=== PATIENT | female | born 1950 | race Caucasian/White ===

== ENCOUNTER 2017-09-22 16:24 | Emergency (ER) | payer MEDICARE, MEDICAID, SELFPAY ==
[2017-09-22 16:25] VITALS: BP 144/68; PULSE 79; RESP 18; TEMP 36.7; O2SAT 99; BMI 25.8
[2017-09-22 18:37] LABS: D-Dimer Quantitative (DVT/PE) 0.42 FEU/ug/m (0.27-0.49)
[2017-09-22 18:45] LABS: Anion Gap 5 (5-15); BUN 24 mg/dL (7-18); BUN/Creat Ratio 27.1 RATIO (10-20); Calcium,Total 8.8 mg/dL (8.5-10.1); Chloride 108 mmol/L (98-107); Creatinine, Serum 0.89 mg/dL (0.55-1.02); EST Glomerular Filtration Rate 68 mL/min (>60); Est Glom Filt Rate - Afr Amer 82 mL/min (>60); Estimated Creatinine Clearance 58.99 ml/min; Glucose 87 mg/dL (74-106); Potassium 4.2 mmol/L (3.5-5.1); Sodium Level 141 mmol/L (136-145)
--- NOTE | 2017-09-22 19:04 | ED.VISSUMM ---
- ER Visit Summary Date of Service: 09/22/17 Chief Complaint: [Right leg swelling] History of Present Illness: The patient is a 67 F [presents the emergency department with complaint of swelling in her right leg that she has noticed for the last week. Patient states that she has been more active and walking more. Patient also states that she is supposed to be on a low-dose water pill which she has not been taking. Patient states that typically the swelling in the right leg will go down as she sleeps and when she wakes up in the morning however after about half an hour of being up the leg starts to swell again. Patient denies any chest pain or shortness of breath. Patient denies recent travel or surgery. Patient has no history of DVT. Patient does not take any type of hormone replacement. Physical Examination: [HEENT-PERRLA, EOMI. Cranial nerves II through XII grossly intact. TMs clear. Mucous membranes moist. No adenopathy. Cardiovascular-regular rate and rhythm without murmur or ectopy Lungs-clear to auscultation, chest wall stable without crepitus or subcu emphysema Abdomen-normoactive bowel sounds, soft, nontender, no rebound or rigidity, no peritoneal signs. Extremities-intact ?4, normal range of motion, normal pulses, atraumatic]. Right leg-patient does have +2 edema of the right lower extremity. Negative Homans sign. No ropes or cords palpated. She is neurovascularly intact with normal pulses and normal sensation. Test Results: [D-dimer performed was normal at 0.42. BMP was unremarkable and her BUN was 24 and creatinine 0.84.] Emergency Department Course and Treatment: [At this point I explained to the patient that my suspicion for DVT is extremely low given no risk factors and the fact that she has a normal d-dimer. Patient will be advised to follow-up with primary care physician within the week.] Treatment Plan: [Patient to use compression stockings and start her diuretic. Patient to follow-up with her primary care physician in 3-5 days.] Disposition: [Discharged home in stable condition.] Patient advised to return if increased swelling, redness, fever, chest pain, shortness of breath, or condition should worsen in any way. Impression: [Right leg swelling-suspect venous insufficiency] This note was generated with [employer] software. It may contain incorrect words, spelling, and punctuation that were not noted in review of the chart prior to signing ED Disposition - Plan for ED Patient: Chief Complaint: Cellulitis Referrals: Westley Crowley, HIGH SCHOOL ADMISSIONS REPRESENTATIVE-C [Primary Care Provider] -
--- NOTE | 2017-09-22 19:06 | ED.DEP ---
ED Disposition - Plan for ED Patient: Chief Complaint: Cellulitis Instructions: ED Leg Swelling Unilateral Referrals: Westley Crowley, REGULATORY AFFAIRS PORTFOLIO LEADER-C [Primary Care Provider] - 5-7 Days Additional Instructions: start your diuretic and use compression stockings
--- NOTE | 2017-09-22 19:07 | DCINST.ED_ITS ---
ED Disposition - Plan for ED Patient: Chief Complaint: Cellulitis Instructions: ED Leg Swelling Unilateral Referrals: Westley Crowley, IRRIGATOR OVERHEAD-C [Primary Care Provider] - 5-7 Days Additional Instructions: start your diuretic and use compression stockings
[2017-09-22 19:31] VITALS: BP 141/64; PULSE 75; RESP 16; O2SAT 98
== END 2017-09-22 19:32 | disposition home or self-care (01) ==
LOC: ED 17:59
PROVIDERS: Emergency Provider Emergency Medicine; Family Provider Nurse Practitioner Family; PCP Nurse Practitioner Family
DX: R60.0 Localized edema (principal); E78.00 Pure hypercholesterolemia, unspecified; Z79.82 Long term (current) use of aspirin; Z79.899 Other long term (current) drug therapy
CPT/HCPCS: 36415; 80048; 85379; 99282

== ENCOUNTER 2017-10-04 08:57 | Emergency (ER) | payer MEDICARE, MEDICAID, SELFPAY ==
[2017-10-04 08:58] VITALS: BP 153/69; PULSE 65; RESP 18; TEMP 36.8; O2SAT 99; BMI 24.2
--- NOTE | 2017-10-04 09:11 | CT_ITS ---
STUDY: CT BRAIN WITHOUT CONTRAST REASON FOR EXAM: Female, 67 years old. Dizziness, weakness and nausea. RADIATION DOSAGE (If Supplied By Facility): CTDIvol = ( 44.99 ) mGy, DLP = ( 812.98 ) mGycm TECHNIQUE: Transaxial CT imaging of the brain was performed without administration of intravenous contrast material. Individualized dose optimization techniques were used for this CT. COMPARISON: None. FINDINGS: Normal soft tissue structures. Normal calvarium. There is mild cerebral atrophy with widening of the extra-axial spaces and ventricular dilatation. Normal white matter tracts of the cerebral hemispheres. Normal basal ganglia and thalami. Normal brainstem. Normal cerebellum. There is no intracranial hemorrhage. There are no findings of an acute ischemic infarction. Atherosclerotic calcification of the cavernous portions of the internal carotid arteries bilaterally. Normal visualized paranasal sinuses. CT/Brain/Head without Contrast IMPRESSION: Chronic involutional changes of the brain. Electronically Signed: Bhupinder Brady MD at 10:31 EDT Tel [phone], Service support ,
--- NOTE | 2017-10-04 09:11 | EKG12_ITS ---
Test Reason : DIZZINESS Blood Pressure : / mmHG Vent. Rate : 067 BPM Atrial Rate : 067 BPM P-R Int : 142 ms QRS Dur : 086 ms QT Int : 408 ms P-R-T Axes : 072 060 042 degrees QTc Int : 431 ms Normal sinus rhythm with sinus arrhythmia Normal ECG Confirmed by DIMITRIOS LOOMIS, ROHINI ([id number]), international editorial producer CAROLA RAMIREZ ([id number]) on 10/09/2017 2:17:51 PM Referred By: GONZALES Confirmed By:ROHINI PLUNKETT MD
--- NOTE | 2017-10-04 09:14 | ED.VISSUMM ---
- ER Visit Summary Date of Service: 10/04/17 Chief Complaint: Dizziness History of Present Illness: The patient is a 67 F history of chronic venous insufficiency peripheral edema right leg worse than left. Does take hydrochlorothiazide as needed for that. States today she had room spinning dizziness. Denies any headache. Denies any nausea or vomiting. Did have diarrhea this morning several times. No melena. Denies any headache. No head trauma. She is not on blood thinners. Denies any trouble with her speech or any change in her vision. No trouble moving her arms and legs. It is worse going from a lying to standing position. And feels awkward walking. No prior history of vertigo. No prior history of stroke or mini stroke. No recent fever. She washed her grandchild yesterday and has been feeling well the last several days. Physical Examination: Well-appearing 67-year-old female. No acute distress. Vital signs are stable afebrile. Pulse ox 99% on room air no signs of hypoxia. HEENT exam unremarkable. Pupils round reactive light. His motions are intact. No facial droop. Normal speech. Right TM is obstructed with wax. Left only a small amount of wax. Left TM is visualized. Normal speech. Neck nontender. No lymphadenopathy. Lungs clear to auscultation bilaterally. Heart regular rate and rhythm no murmur. Rate about 65. Abdomen soft nontender. Normal bowel sounds no peritoneal signs. She is moving all 4 extremities. They are neurovascularly intact. Normal motor strength. Normal range of motion. Normal sensation. She does have peripheral edema in both lower extremities much more so on the right than the left. This is all chronic. Dorsi and plantar flexion are intact. She can lift either leg off the bed. Neurologically she is awake and alert. With no focal motor or sensory deficits. NIH is 0. Fingertip to nose and heel to solorzano are both within normal limits. Test Results: CBC normal. BMP normal. Normal gap and creatinine. Orthostatic vital signs are normal. No signs of orthostatic hypotension. EKG sinus rhythm rate is [address] of the brain is read by the radiologist and read by me shows no acute abnormality. The nurses irrigated the patient's ears are really got very little wax out. Emergency Department Course and Treatment: Clinically the patient has basically normal neurologic exam. There are no focal deficits. She also has a negative Hallpike maneuver. Moving her head rapidly from the left to the right and right to the left in sitting her up did not make her symptoms any worse. Currently her symptoms are benign. She will receive IV fluids times a liter. We will irrigate the right ear. Check screening labs and a CT of her brain. Treatment Plan: Repeat exam at 1039 patient is completely symptom-free. Exam remains normal. Clinically I think she had vertigo that resolved. She will be discharged home with Antivert as needed. Follow-up with primary care physician. supervisor stitching department either Debrox or Cerumenex for her wax impaction in the right ear. Disposition: Discharge Impression: Acute dizziness secondary to acute vertigo resolved. Diarrhea Right cerumen impaction This note was generated with [employer] dictation software. It may contain incorrect words, spelling, and punctuation that were not noted in review of the chart prior to signing ED Disposition - Plan for ED Patient: Chief Complaint: Dizziness Referrals: Westley Crowley, RN STAFF-C [Primary Care Provider] -
--- NOTE | 2017-10-04 09:21 | ED.DCSUM_ITS ---
- ER Visit Summary Date of Service: 10/04/17 Chief Complaint: Dizziness History of Present Illness: The patient is a 67 F history of chronic venous insufficiency peripheral edema right leg worse than left. Does take hydrochlorothiazide as needed for that. States today she had room spinning dizziness. Denies any headache. Denies any nausea or vomiting. Did have diarrhea this morning several times. No melena. Denies any headache. No head trauma. She is not on blood thinners. Denies any trouble with her speech or any change in her vision. No trouble moving her arms and legs. It is worse going from a lying to standing position. And feels awkward walking. No prior history of vertigo. No prior history of stroke or mini stroke. No recent fever. She washed her grandchild yesterday and has been feeling well the last several days. Physical Examination: Well-appearing 67-year-old female. No acute distress. Vital signs are stable afebrile. Pulse ox 99% on room air no signs of hypoxia. HEENT exam unremarkable. Pupils round reactive light. His motions are intact. No facial droop. Normal speech. Right TM is obstructed with wax. Left only a small amount of wax. Left TM is visualized. Normal speech. Neck nontender. No lymphadenopathy. Lungs clear to auscultation bilaterally. Heart regular rate and rhythm no murmur. Rate about 65. Abdomen soft nontender. Normal bowel sounds no peritoneal signs. She is moving all 4 extremities. They are neurovascularly intact. Normal motor strength. Normal range of motion. Normal sensation. She does have peripheral edema in both lower extremities much more so on the right than the left. This is all chronic. Dorsi and plantar flexion are intact. She can lift either leg off the bed. Neurologically she is awake and alert. With no focal motor or sensory deficits. NIH is 0. Fingertip to nose and heel to solorzano are both within normal limits. Test Results: CBC normal. BMP normal. Normal gap and creatinine. Orthostatic vital signs are normal. No signs of orthostatic hypotension. EKG sinus rhythm rate is [address] of the brain is read by the radiologist and read by me shows no acute abnormality. The nurses irrigated the patient's ears are really got very little wax out. Emergency Department Course and Treatment: Clinically the patient has basically normal neurologic exam. There are no focal deficits. She also has a negative Hallpike maneuver. Moving her head rapidly from the left to the right and right to the left in sitting her up did not make her symptoms any worse. Currently her symptoms are benign. She will receive IV fluids times a liter. We will irrigate the right ear. Check screening labs and a CT of her brain. Treatment Plan: Repeat exam at 1039 patient is completely symptom-free. Exam remains normal. Clinically I think she had vertigo that resolved. She will be discharged home with Antivert as needed. Follow-up with primary care physician. software support technician either Debrox or Cerumenex for her wax impaction in the right ear. Disposition: Discharge Impression: Acute dizziness secondary to acute vertigo resolved. Diarrhea Right cerumen impaction This note was generated with [email or web address] dictation software. It may contain incorrect words, spelling, and punctuation that were not noted in review of the chart prior to signing ED Disposition - Plan for ED Patient: Chief Complaint: Dizziness Referrals: Westley Crowley, UX MANAGER-C [Primary Care Provider] -
[2017-10-04] MEDS: 0.9% Normal Saline 1,000 ML 1000 ML IV (09:39)
[2017-10-04 09:45] LABS: Hematocrit 42.1 % (37-47); Hemoglobin 13.2 g/dl (12.0-15.0); Mean Corp Hgb Conc 31.4 g/gl (32-36); Mean Corpuscular Hgb 27.8 pg (27.0-32.0); Mean Corpuscular Volume 88.8 fL (81-99); Mean Platelet Vol. 10.6 fl (6.2-12.0); Platelet Count 173 K/mm3 (150-450); RBC Distribution Width CV 13.7 % (11.6-14.6); RBC Distribution Width SD 44.2 fl (35.1-43.9); Red Blood Count 4.74 M/mm3 (4.2-5.4); Scan Indicated on CBC? Y/N NO; White Blood Count 6.3 K/mm3 (4.4-11.0)
[2017-10-04 10:18] VITALS: BP 139/69; BP 141/69; BP 146/76; PULSE 72; PULSE 74; PULSE 77
[2017-10-04 10:25] LABS: Anion Gap 6 (5-15); BUN 17 mg/dL (7-18); BUN/Creat Ratio 23.7 RATIO (10-20); Calcium,Total 8.3 mg/dL (8.5-10.1); Chloride 111 mmol/L (98-107); Creatinine, Serum 0.72 mg/dL (0.55-1.02); EST Glomerular Filtration Rate 87 mL/min (>60); Est Glom Filt Rate - Afr Amer 105 mL/min (>60); Estimated Creatinine Clearance 72.92 ml/min; Glucose 94 mg/dL (74-106); Potassium 4.1 mmol/L (3.5-5.1); Sodium Level 143 mmol/L (136-145)
--- NOTE | 2017-10-04 10:50 | ED.DEP ---
ED Disposition - Plan for ED Patient: Disposition: Home or Assisted Living Chief Complaint: Dizziness Instructions: ED BPV Vertigo Prescriptions: Meclizine HCl [Antivert] 25 mg PO 4X/DAY PRN PRN #20 tab PRN Reason: Dizziness Referrals: Westley Crowley, LABELER-C [Primary Care Provider] - 1 Week if not improving Additional Instructions: Antivert as needed for dizziness. If not improving follow-up your primary care physician. If worse return to the ER.
--- NOTE | 2017-10-04 10:53 | DCINST.ED_ITS ---
ED Disposition - Plan for ED Patient: Disposition: Home or Assisted Living Chief Complaint: Dizziness Instructions: ED BPV Vertigo Prescriptions: Meclizine HCl [Antivert] 25 mg PO 4X/DAY PRN PRN #20 tab PRN Reason: Dizziness Referrals: Westley Crowley, WOOL SHEARING SUPERVISOR-C [Primary Care Provider] - 1 Week if not improving Additional Instructions: Antivert as needed for dizziness. If not improving follow-up your primary care physician. If worse return to the ER.
[2017-10-04 10:56] VITALS: BP 139/77; PULSE 71; RESP 16; O2SAT 99
== END 2017-10-04 10:56 | disposition home or self-care (01) ==
PROVIDERS: Emergency Provider Emergency Medicine; Family Provider Nurse Practitioner Family; PCP Nurse Practitioner Family
DX: R42 Dizziness and giddiness (principal); R19.7 Diarrhea, unspecified; H61.21 Impacted cerumen, right ear; I87.2 Venous insufficiency (chronic) (peripheral); E78.00 Pure hypercholesterolemia, unspecified; Z79.82 Long term (current) use of aspirin; Z79.899 Other long term (current) drug therapy
CPT/HCPCS: 70450; 80048; 85027; 93005; 96360; 99285; J7030

== ENCOUNTER → 2019-08-13 07:45 | Outpatient (CLI) | payer MEDICARE, SELFPAY ==
[2019-08-13 08:37] LABS: Hematocrit 41.9 % (37-47); Hemoglobin 13.1 g/dL (12.0-15.0); Mean Corp Hgb Conc 31.3 g/dL (32-36); Mean Corpuscular Hgb 28.1 pg (27.0-32.0); Mean Corpuscular Volume 89.9 fL (81-99); Mean Platelet Vol. 10.8 fl (6.2-12.0); Platelet Count 178 K/mm3 (150-450); RBC Distribution Width CV 13.2 % (11.6-14.6); RBC Distribution Width SD 43.3 fl (35.1-43.9); Red Blood Count 4.66 M/mm3 (4.2-5.4); White Blood Count 4.9 K/mm3 (4.4-11.0)
[2019-08-13 09:09] LABS: AST(SGOT) 21 U/L (15-37); Alanine Aminotransfer ALT/SGPT 22 U/L (13-56); Albumin, Serum 3.5 g/dL (3.2-5.0); Alkaline Phosphatase 70 U/L (45-117); Anion Gap 6 (5-15); BUN 19 mg/dL (7-18); Calcium,Total 9.1 mg/dL (8.5-10.1); Chloride 107 mmol/L (98-107); Cholesterol 171 mg/dL (200); Creatinine, Serum 0.76 mg/dL (0.55-1.02); EST Glomerular Filtration Rate 81 mL/min (>60); Est Glom Filt Rate - Afr Amer 97 mL/min (>60); Globulin 3.4 g/dL (2.2-4.2); Glucose 100 mg/dL (74-106); High Density Lipoprotein 71 mg/dL; Potassium 4.2 mmol/L (3.5-5.1); Protein, Total 6.9 g/dL (6.4-8.2); Sodium Level 141 mmol/L (136-145); Triglycerides 52 mg/dL; Very Low Density Lipoprotein 10 mg/dL (5-40)
== END ==
PROVIDERS: PCP Nurse Practitioner Family; Referring Provider Nurse Practitioner Family; Visit Provider Nurse Practitioner Family
DX: E78.5 Hyperlipidemia, unspecified (principal); I34.0 Nonrheumatic mitral (valve) insufficiency
CPT/HCPCS: 36415; 80053; 80061; 85027

== ENCOUNTER → 2020-12-30 10:35 | Outpatient (CLI) | payer MEDICARE, SELFPAY ==
--- NOTE | 2020-12-30 10:38 | ECHOD_ITS ---
Reason For Study: EDEMA Procedure This was a 2D Doppler, Color Flow transthoracic echocardiogram. Exam performed in department. Left Ventricle Normal LV size. Left ventricular systolic function is normal. The estimated ejection fraction is 60 %. No regional wall motion abnormalities noted. Right Ventricle Normal RV size. Normal systolic function. Atria Normal left atrium. Normal right atrium. Mitral Valve Normal mitral valve. Tricuspid Valve Normal tricuspid valve. Aortic Valve Normal aortic valve. Trisinus/trileaflet aortic valve. Pulmonic Valve Normal pulmonic valve. Great Vessels Normal aortic root. The pulmonary artery is normal size. Normal inferior vena cava. Pericardium/Pleural No pericardial effusion. MMode/2D Measurements & Calculations LVIDd: 4.6 cm IVSd: 0.79 cm Ao root diam: 3.0 cm LVIDs: 3.4 cm LVPWd: 0.88 cm RVDd: 3.0 cm FS: 27.0 % LAV(MOD-bp): 57.0 ml LA A4 area: 18.9 cm2 LA dimension(2D): 3.7 cm LAV(MOD-bp) Indexed: 30.2 ml/m2 LAV(MOD-sp2): 58.5 ml LAV(MOD-sp4): 54.3 ml RA A4 area: 13.7 cm2 Time Measurements MV dec time: 0.20 sec Doppler Measurements & Calculations MV E max duong: 79.1 cm/sec Lat Peak E' Duong: 12.0 cm/sec Med Peak E' Duong: 7.5 cm/sec MV A max duong: 69.0 cm/sec E/E' lat: 6.6 E/E' med: 10.5 MV E/A: 1.1 Ao V2 max: 137.1 cm/sec LV V1 max: 111.0 cm/sec PA V2 max: 71.6 cm/sec Ao max P.5 mmHg LV V1 max P.9 mmHg ECHO/Echo Complete Interpretation Summary Normal LV size. Left ventricular systolic function is normal. The estimated ejection fraction is 60 %. Structurally normal valves. Ordering Physician: Westley Crowley Referring Physician: Westley Crowley Performed By: Seema Morel, EDWIN, RVT
== END ==
LOC: CVS 10:37
PROVIDERS: PCP Nurse Practitioner Family; Referring Provider Nurse Practitioner Family; Visit Provider Nurse Practitioner Family
DX: R01.1 Cardiac murmur, unspecified (principal); I34.0 Nonrheumatic mitral (valve) insufficiency; I07.1 Rheumatic tricuspid insufficiency
CPT/HCPCS: 93306

== ENCOUNTER → 2021-01-25 09:38 | Outpatient (CLI) | payer MEDICARE, SELFPAY ==
--- NOTE | 2021-01-25 09:45 | VDLE_ITS ---
Reason For Study: Venous insufficiency RIGHT LEFT CFV is compressible, spontaneous, phasic, CFV is compressible, spontaneous, phasic, competent and demonstrates normal competent, and demonstrates normal augmentation. augmentation. FV is compressible, spontaneous, phasic, FV is compressible, spontaneous, phasic, competent and demonstrates normal competent and demonstrates normal augmentation. augmentation. POP V is compressible, spontaneous, phasic, POP V is compressible, spontaneous, phasic, competent and demonstrates normal competent and demonstrates normal augmentation. augmentation. T/P Trunk is compressible. T/P Trunk is compressible. PTV is compressible. PTV is compressible. RT PerV is compressible. LT PerV is compressible. SFJ is competent and measures 0.64 x 0.72 cm. SFJ is competent and measures 0.73 x 0.66 cm. GSV proximal thigh measures 0.44 x 0.42 cm. GSV proximal thigh measures 0.31 x 0.33 cm. GSV at knee measures 0.31 x 0.32 cm. GSV at knee measures 0.18 x 0.20 cm. GSV is competent throughout. GSV is competent throughout. ASV at knee is INCOMPETENT for greater than SSV at junction is competent and measures 0.5 seconds and measures 0.25 x 0.27 cm. 0.09 x 0.10 cm. INCOMPETENT cutting machine tender noted 24 cm above medical malleolus. SSV at junction is competent and measures 0.41 x 0.37 cm. Procedure This is a venous duplex using B-mode, color flow and spectral Doppler. Exam performed in department. Patient was scanned in supine position during reflux assessment. A preliminary report was called and/or faxed to [facility]. VL/Venous Duplex US - Say Extrem Interpretation Summary Deep veins of the lower extremities are bilaterally patent and compressible seg mentally. There is no evidence of deep vein thrombosis on either side. Valvular competence appears in tact within the proximal deep venous systems bilaterally. The great saphenous veins appear bila terally patent and compressible segmentally. Sapheno-femoral junctions are bilaterally competent . Valvular competence appears to be intact segmentally within the great saphenous veins bilaterally. Small saphenous veins are patent and competent bilaterally. The accessory saphenous vein at the right knee is incompetent. An incompetent cutting machine tender vein is noted in the right calf, located 24 centimete rs proximal to the right medial malleolus. Ordering Physician: Westley Crowley Referring Physician: Westley Crowley Performed By: Charlotte Carter RVT
== END ==
LOC: CVS 09:42
PROVIDERS: PCP Nurse Practitioner Family; Referring Provider Nurse Practitioner Family; Visit Provider Nurse Practitioner Family
DX: I87.2 Venous insufficiency (chronic) (peripheral) (principal); R60.0 Localized edema
CPT/HCPCS: 93970

== ENCOUNTER 2021-05-10 10:30 | Outpatient (RCR) | payer MEDICARE, SELFPAY ==
[2021-05-03 10:12] VITALS: BP 139/78; PULSE 80; RESP 20; TEMP 36.3; BMI 26.7
--- NOTE | 2021-05-03 11:05 | PCM.WC.HP ---
History of Present Illness Date of Service: 05/03/21 Chief Complaint: Swelling, edema, and lymphedema?right lower extremity History of Wound: This is a 70-year-old female who presents with swelling, edema, and lymphedema in her right lower extremity. She claims to have been in her normal state of good health until December 06, 2020. On that date, after a long day at the [facility], the patient developed sudden swelling and edema in her right lower extremity. She denies a history of swelling in her lower extremities prior to that date. The swelling in the right lower extremity has persisted since that time, unabated. According the patient, the swelling does not vary by time of day. The patient claims to be active, and sleeps on a flat mattress at night. She babysits her toddler grandchildren during the day. She experiences only occasional pain and discomfort in her right lower extremity. Her left lower extremity is unaffected. The patient denies a history of thrombophlebitis. A venous duplex examination was performed on January 25, 2021. Great saphenous veins and small saphenous veins were noted to be competent bilaterally. An accessory saphenous vein near the right knee was noted to be incompetent. A sports official vein in the right calf was also noted to be incompetent. There was no evidence of acute thrombophlebitis, or chronic venous changes. The patient's primary care physician has prescribed Lasix, which has not resulted in improvement. The patient's BMI is 26.8. [facility] Medical History (Updated 05/03/21 @ 11:[address] Justin Ryan MD) Chronic venous insufficiency Edema of right lower leg Hyperlipidemia Lymphedema of right lower extremity Osteoarthritis Swelling of right lower extremity Home Medications aspirin 81 mg PO DAILY@0800 09/22/17 [History Last Taken Unknown] atorvastatin 10 mg PO QHS 09/22/17 [History Last Taken Unknown] furosemide [Lasix] 20 mg PO DAILY 05/03/21 [History Last Taken Unknown] ramipril 1.25 mg PO DAILY 05/03/21 [History Last Taken Unknown] Allergy/AdvReac Type Severity Reaction Status Date / Time No Known Allergies Allergy Verified 05/03/21 10:26 Social History Smoking Status: Never smoker Vital Signs Vital Signs Vital Signs: 05/03/21 10:12 Temperature 97.3 F L Temperature Source Temporal Pulse Rate 80 Respiratory Rate 20 H Blood Pressure 139/78 H Blood Pressure Mean 98 Blood Pressure Source Monitor Weight Weight: 165 lb 12.203 oz Body Mass Index (BMI) 26.7 Physical Exam Const alert, oriented x3, no apparent distress and well nourished General Appearance: cooperative and well developed Orientation / Consciousness: awake, oriented to person, oriented to place and oriented to time HEENT normocephalic and head/scalp atraumatic Head and Scalp: normal to inspection, normocephalic and atraumatic External Ear: external ears normal Eyes PERRL and EOMs intact bilaterally General Eye: normal appearance of both eyes Resp normal respiratory effort, normal air movement, no retractions and no use of accessory muscles Effort and Inspection: able to speak in complete sentences Extremity no calf tenderness Extremity Narrative: Significant swelling, edema, and lymphedema are noted in the patient's right lower extremity. Circumference measurements have been obtained. There are no open wounds or ulcerations. There are no significant skin changes. There are no significant medium or large sized varicosities. The left lower extremity is normal, devoid of swelling and edema. General Extremity: Negative for clubbing or cyanosis Skin Wound Narrative: There are no open wounds or ulcerations in either lower extremity. Neuro oriented x3, CN's II-XII intact bilaterally and moves all extremities Sensorium / Orientation: awake, alert, oriented to person, oriented to place and oriented to time Psych Appearance: grossly normal and appropriate Attitude: calm Activity / Motor Behavior: appropriate eye contact Speech: normal speech Mood & Affect: euthymic mood Thought Process: normal thought process Thought Content: normal thought content Attention / Concentration: attention grossly intact Debridement Note Debridement Note No debridement was completed: No debridement was completed today (There are no open wounds or ulcerations.) Post-Debridement Measurements and Additional Note: Post-Debridement Measurements/Treatment ANIKET - Nurse 1 - General Ulcer Assessment Start: 05/03/21 10:12 Freq: Status: Active Protocol: FLOYD Activity Type Activity Date Activity User E-Sign Co-Sign Detail Recorded Client Recorded Date Recorded By Document 05/03/21 10:12 DL [id number] 05/03/21 10:21 DL 05/03/21 10:12 - Today's Visit Information Type of service Initial Visit Arrival Mode Ambulatory Transfer Assistance None Patient Identification Verified (Name & Yes ) Patient Requires Transmission-Based No Precautions Height and Weight Height 5 ft 6 in Weight 165 lb 12.203 oz Weight in Pounds 165.8 lbs Body Mass Index (BMI) 26.7 BMI Classification Overweight BSA - Antonio 1.85 Vital Signs Temperature (97.8 F-99.1 F) 97.3 F L Temperature Source Temporal Pulse Rate (60-100) 80 Pulse Location Monitor Respiratory Rate (12-18) 20 H Respiratory rate source Observation Blood Pressure (90/60-120/80) 139/78 H Blood Pressure Mean 98 Source Monitor History Since Last Visit- (Skip if this is Patient's initial visit) Left Footwear Regular Shoe Right Footwear Regular Shoe Pain Scale: 0-10 Numeric Is Patient Pain Free? Yes Lower Extremity Assessment/ Foot Assessment/ Toe Nail Assessment Left -Posterior Tibial Palpable Yes -Dorsalis Pedis Palpable Yes -Extremity Color Hemosiderin -Hair Growth on Legs No -Hair Growth on Toes No -Temperature of Extremity Warm -Dependent Rubor No -Blanched when Elevated No -Lipodermatosclerosis No -Other Deformity No -Prior Foot Ulcer No -Charcot Joint No -Prior Amputation No -Thick No -Discolored No -Deformed No -Improper Length & Hygeine No Right -Posterior Tibial Palpable Yes -Dorsalis Pedis Palpable Yes -Extremity Color Normal -Hair Growth on Legs Yes -Temperature of Extremity Warm -Capillary Refill Less than 3 Seconds -Dependent Rubor No -Blanched when Elevated No -Lipodermatosclerosis No -Other Deformity No -Prior Foot Ulcer No -Charcot Joint No -Prior Amputation No -Thick No -Discolored No -Deformed No -Improper Length & Hygeine No Neuropathy Assessment Feet - Top Side and Bottom <Entered> (a) Communication Assessment Preferred language Singaporean Able to Read Yes Able to Write Yes Communication Tools None Right Hearing Abillity Normal Left Hearing Abillity Normal Visual Assistive Devices None Teaching Assessment Preferences Verbal,Written, Demonstration Readiness To Learn Good Willingness to Engage in Self Management Med Activies Readiness to Engage in Self Management High Activities Anxiety Level Calm Cooperation Cooperative Perception Coherent Interest in Health Problem Asks Questions Education Importance Acknowledges Need Does Patient Smoke tobacco or other No substances Smoking Status Never smoker Is Patient Diabetic No Functional Assessment Recent Decline in Ability to Perform Denies Any Declines Culture/Bahai/Staffing Associate Cultural/Bahai Needs that may affect No Treatment Plan Would you allow our hospital internet site designer to No meet you for the purpose of spiritual/ emotional support? Staffing Associate to contact place of adventist No (a) 1 - + WC - Nurse 1 - General Ulcer Measurement Start: 05/03/21 10:12 Freq: Status: Active Protocol: Activity Type Activity Date Activity User E-Sign Co-Sign Detail Recorded Client Recorded Date Recorded By Document 05/03/21 10:12 DL [id number] 05/03/21 10:21 DL 05/03/21 10:12 Wound Center Nurse 1 Right Calf (cm) 46 Right Ankle (cm) 34.2 Left Calf (cm) 39 Left Ankle (cm) 27 Assessment/Plan Assessment/Plan (1) Swelling of right lower extremity: CODE(S): M79.89 - Other specified soft tissue disorders (2) Edema of right lower leg: CODE(S): R60.0 - Localized edema (3) Lymphedema of right lower extremity: CODE(S): I89.0 - Lymphedema, not elsewhere classified (4) Osteoarthritis: CODE(S): M19.90 - Unspecified osteoarthritis, unspecified site (5) Hyperlipidemia: CODE(S): E78.5 - Hyperlipidemia, unspecified (6) Chronic venous insufficiency: CODE(S): I87.2 - Venous insufficiency (chronic) (peripheral) PLAN: This is a 70-year-old female with swelling, edema, and lymphedema in her right lower extremity, since November 2020. We are to implement a regimen of conservative treatment measures, which have been discussed thoroughly with the patient today. These measures are to include leg elevation. The patient's legs are to be elevated to heart level, or higher, as much as possible, even during daytime hours. She is to continue sleeping on a flat mattress at night. Activity has been encouraged. Prolonged, idle sitting has been discouraged. We are to implement compression to the right lower extremity by means of SurePress, which will be applied by the patient daily, from morning until bedtime. Patient is to return in 1 week for reassessment. We will monitor the status of her right lower extremity serially, and ultimately consider what form of compression to the right lower extremity might be most appropriate and best tolerated long-term. This may include either graduated compression stockings or CircAid compression garments. Ultimately, depending upon the patient's clinical course, mechanical, pneumatic compression pumps may also be of benefit. Efforts have been initiated to obtain a CT scan of the pelvis, to exclude possible sources of venous or lymphatic outflow obstruction, such as tumor or other mass-effect. There have been some initial problems in obtaining insurance preauthorization. Total time: 29 minutes
[2021-05-10 10:32] VITALS: BP 135/73; PULSE 73; RESP 20; TEMP 37.1; BMI 26.7
--- NOTE | 2021-05-10 15:00 | HP.PCM_ITS ---
History of Present Illness Date of Service: 05/10/21 Chief Complaint: Swelling, edema, and lymphedema?right lower extremity History of Wound: This is a 70-year-old female who presents with swelling, edema, and lymphedema in her right lower extremity. She claims to have been in her normal state of good health until December 06, 2020. On that date, after a long day at the [facility], the patient developed sudden swelling and edema in her right lower extremity. She denies a history of swelling in her lower extremities prior to that date. The swelling in the right lower extremity has persisted since that time, unabated. According the patient, the swelling does not vary by time of day. The patient claims to be active, and sleeps on a flat mattress at night. She babysits her toddler grandchildren during the day. She experiences only occasional pain and discomfort in her right lower extremity. Her left lower extremity is unaffected. The patient denies a history of thrombophlebitis. A venous duplex examination was performed on January 25, 2021. Great saphenous veins and small saphenous veins were noted to be competent bilaterally. An accessory saphenous vein near the right knee was noted to be incompetent. A circle cutting saw operator vein in the right calf was also noted to be incompetent. There was no evidence of acute thrombophlebitis, or chronic venous changes. The patient's primary care physician has prescribed Lasix, which has not resulted in improvement. The patient's BMI is 26.8. [facility] Medical History Chronic venous insufficiency Edema of right lower leg Hyperlipidemia Lymphedema of right lower extremity Osteoarthritis Swelling of right lower extremity Home Medications aspirin 81 mg PO DAILY@0800 09/22/17 [History Last Taken Unknown] atorvastatin 10 mg PO QHS 09/22/17 [History Last Taken Unknown] furosemide [Lasix] 20 mg PO DAILY 05/03/21 [History Last Taken Unknown] ramipril 1.25 mg PO DAILY 05/03/21 [History Last Taken Unknown] Allergy/AdvReac Type Severity Reaction Status Date / Time No Known Allergies Allergy Verified 05/03/21 10:26 Social History Smoking Status: Never smoker Vital Signs Vital Signs Vital Signs: 05/10/21 10:32 Temperature 98.7 F Temperature Source Temporal Pulse Rate 73 Respiratory Rate 20 H Blood Pressure 135/73 H Blood Pressure Mean 93 Blood Pressure Source Monitor Weight Weight: 165 lb 12.203 oz Body Mass Index (BMI) 26.7 Physical Exam Const alert, oriented x3, no apparent distress and well nourished General Appearance: cooperative, comfortable, well kempt and well developed Orientation / Consciousness: awake, oriented to person, oriented to place and oriented to time HEENT normocephalic and head/scalp atraumatic Head and Scalp: normal to inspection, normocephalic and atraumatic External Ear: external ears normal Eyes PERRL and EOMs intact bilaterally General Eye: normal appearance of both eyes Resp normal respiratory effort, normal air movement, no retractions and no use of accessory muscles Effort and Inspection: able to speak in complete sentences Extremity no calf tenderness Extremity Narrative: Patient's left lower extremity appears relatively normal, without significant swelling or edema. There are no skin changes or ulcerations of the left lower extremity. The right lower extremity demonstrates rather significant swelling and edema, appearing to be worse and more pronounced than the patient's prior visit. Circumference measurements are documented elsewhere. There are no significant skin changes. There are no open wounds or ulcerations. General Extremity: Negative for clubbing or cyanosis Skin no rashes or lesions noted and no wounds Neuro oriented x3, CN's II-XII intact bilaterally and moves all extremities Sensorium / Orientation: awake, alert, oriented to person, oriented to place and oriented to time Psych Appearance: grossly normal and appropriate Attitude: calm Activity / Motor Behavior: appropriate eye contact Speech: normal speech Mood & Affect: euthymic mood Thought Process: normal thought process Thought Content: normal thought content Attention / Concentration: attention grossly intact Debridement Note Debridement Note No debridement was completed: No debridement was completed today (There are no open wounds or ulcerations.) Post-Debridement Measurements and Additional Note: Post-Debridement Measurements/Treatment WC - Nurse 1 - General Ulcer Assessment Start: 05/03/21 10:12 Freq: Status: Active Protocol: FLOYD Activity Type Activity Date Activity User E-Sign Co-Sign Detail Recorded Client Recorded Date Recorded By Document 05/03/21 10:12 DL [id number] 05/03/21 10:21 DL Document 05/10/21 10:32 DL [id number] 05/10/21 10:37 DL 05/03/21 05/10/21 10:12 10:32 WC - Today's Visit Information Type of service Initial Visit Follow-up Visit (Physician/CASINO OPERATIONS SUPERVISOR ) Arrival Mode Ambulatory Ambulatory Transfer Assistance None None Patient Identification Verified (Name & Yes Yes ) Patient Requires Transmission-Based No No Precautions Height and Weight Height 5 ft 6 in Weight 165 lb 12.203 oz Weight in Pounds 165.8 lbs Body Mass Index (BMI) 26.7 26.7 BMI Classification Overweight Overweight BSA - Antonio 1.85 Vital Signs Temperature (97.8 F-99.1 F) 97.3 F L 98.7 F Temperature Source Temporal Temporal Pulse Rate (60-100) 80 73 Pulse Location Monitor Monitor Respiratory Rate (12-18) 20 H 20 H Respiratory rate source Observation Observation Blood Pressure (90/60-120/80) 139/78 H 135/73 H Blood Pressure Mean 98 93 Source Monitor Monitor Have you changed medications since your No last visit? Any new allergies or adverse reactions No Had a fall/change in ADL's that may No increase risk of falls Signs or symptoms of abuse and/or No neglect since last visit Have you been in the hospital since your No last visit? Has dressing in place as prescribed Yes Has compression in place as prescribed Yes Has offloadiing in place as prescribed N/A Experienced any changes in pain level or No management History Since Last Visit- (Skip if this is Patient's initial visit) Left Footwear Regular Shoe Right Footwear Regular Shoe Pain Scale: 0-10 Numeric Is Patient Pain Free? Yes Yes Lower Extremity Assessment/ Foot Assessment/ Toe Nail Assessment Left -Posterior Tibial Palpable Yes -Dorsalis Pedis Palpable Yes -Extremity Color Hemosiderin -Hair Growth on Legs No -Hair Growth on Toes No -Temperature of Extremity Warm -Dependent Rubor No -Blanched when Elevated No -Lipodermatosclerosis No -Other Deformity No -Prior Foot Ulcer No -Charcot Joint No -Prior Amputation No -Thick No -Discolored No -Deformed No -Improper Length & Hygeine No Right -Posterior Tibial Palpable Yes -Dorsalis Pedis Palpable Yes -Extremity Color Normal -Hair Growth on Legs Yes -Temperature of Extremity Warm -Capillary Refill Less than 3 Seconds -Dependent Rubor No -Blanched when Elevated No -Lipodermatosclerosis No -Other Deformity No -Prior Foot Ulcer No -Charcot Joint No -Prior Amputation No -Thick No -Discolored No -Deformed No -Improper Length & Hygeine No Neuropathy Assessment Feet - Top Side and Bottom <Entered> (a) Communication Assessment Preferred language Andorran Able to Read Yes Able to Write Yes Communication Tools None Right Hearing Abillity Normal Left Hearing Abillity Normal Visual Assistive Devices None Teaching Assessment Preferences Verbal,Written, Demonstration Readiness To Learn Good Willingness to Engage in Self Management Med Activies Readiness to Engage in Self Management High Activities Anxiety Level Calm Cooperation Cooperative Perception Coherent Interest in Health Problem Asks Questions Education Importance Acknowledges Need Does Patient Smoke tobacco or other No substances Smoking Status Never smoker Is Patient Diabetic No Functional Assessment Recent Decline in Ability to Perform Denies Any Declines Culture/Rastafari/Senior Ui Ux Designer Cultural/Rastafari Needs that may affect No Treatment Plan Would you allow our hospital television operator to No meet you for the purpose of spiritual/ emotional support? Senior Ui Ux Designer to contact place of rastafari No (a) 1 - + WC - Nurse 1 - General Ulcer Measurement Start: 05/03/21 10:12 Freq: Status: Active Protocol: Activity Type Activity Date Activity User E-Sign Co-Sign Detail Recorded Client Recorded Date Recorded By Document 05/03/21 10:12 DL [id number] 05/03/21 10:21 DL Document 05/10/21 10:32 DL [id number] 05/10/21 10:37 DL 05/03/21 05/10/21 10:12 10:32 Edema -Texture (Qian-wound Skin Appearance) No Abnormality -Moisture (Qian-wound Skin Appearance) No Abnormality -Color (Qian-wound Skin Appearance) No Abnormality -Temperature (Qian-wound Skin No Abnormality Appearance) (Pt Warm) -Tenderness on Palpation (Qian-wound No Skin Appearance) Wound Center Nurse 1 Right Calf (cm) 46 45.5 Right Ankle (cm) 34.2 32 Left Calf (cm) 39 38.5 Left Ankle (cm) 27 28.8 WC - Nurse 3 - General Ulcer D/C NN Start: 05/03/21 10:12 Freq: Status: Active Protocol: Activity Type Activity Date Activity User E-Sign Co-Sign Detail Recorded Client Recorded Date Recorded By Document 05/10/21 11:36 DL [id number] 05/10/21 11:37 DL 05/10/21 11:36 Wound Care Nurse 3 Right -Multi-Layered Wrap Application Multi-Layer Comp - Right ($ ) Treatment Response Procedure Tolerated Well Pain Scale: 0-10 Numeric Is Patient Pain Free? Yes WC - Visit Discharge Discharge Condition Stable Ambulatory Status Ambulatory Transportation Private Auto Assessment/Plan Assessment/Plan (1) Swelling of right lower extremity: CODE(S): M79.89 - Other specified soft tissue disorders (2) Edema of right lower leg: CODE(S): R60.0 - Localized edema (3) Lymphedema of right lower extremity: CODE(S): I89.0 - Lymphedema, not elsewhere classified (4) Chronic venous insufficiency: CODE(S): I87.2 - Venous insufficiency (chronic) (peripheral) (5) Hyperlipidemia: CODE(S): E78.5 - Hyperlipidemia, unspecified (6) Osteoarthritis: CODE(S): M19.90 - Unspecified osteoarthritis, unspecified site PLAN: This is a 70-year-old female with swelling, edema, and lymphedema in her right lower extremity, since November 2020. We have implemented a regimen of conservative treatment measures, which have been discussed thoroughly with the patient at each of her visits. These measures are to include leg elevation. The patient's legs are to be elevated to heart level, or higher, as much as possible, even during daytime hours. She is to continue sleeping on a flat mattress at night. Activity has been encouraged. Prolonged, idle sitting has been discouraged. We implemented compression to the right lower extremity by means of SurePress, which was to be applied by the patient daily, from morning until bedtime. The patient returns today, however, stating it did not work for me. She indicates that she had difficulty in applying the SurePress compression wrap, and in keeping it intact and in place. As result, the patient has largely been without compression to her right lower extremity since her last visit a week ago. Therefore, we are to implement the use of 3M 2 layer compression wrap to the right lower extremity, which will be changed twice weekly. Patient lives nearby, and will present twice each week for a reapplication of her multilayer compression wrap. In this manner, we will not need to rely upon the patient applying wraps independently, which thus far have not been to her benefit. We will monitor the status of her right lower extremity serially, and ultimately consider what form of compression to the right lower extremity might be most appropriate and best tolerated long-term. This may include either graduated compression stockings or CircAid compression garments. At this juncture, we are to request pneumatic mechanical compression pumps, for use on the right lower extremity. It is felt that the patient's chronic swelling, edema, and lymphedema warrant the use of mechanical compression pumps. Efforts were initiated initiated to obtain a CT scan of the pelvis, to exclude possible sources of venous or lymphatic outflow obstruction, such as tumor or other mass-effect. The patient's insurance company denied preauthorization for a CT scan. As an alternative, the patient has been encouraged to seek TOOL GRINDING TECHNICIAN evaluation, as a thorough bimanual TOOL GRINDING TECHNICIAN examination would likely reveal the presence of any significant pelvic masses that could account for the swelling in the patient's right lower extremity. Patient is to return in 1 week for reassessment. Total time: 28 minutes
== END 2021-05-23 23:59 | disposition home or self-care (01) ==
LOC: WC 10:30
PROVIDERS: PCP Nurse Practitioner Family; Visit Provider Surgery
DX: M79.89 Other specified soft tissue disorders (principal); I87.2 Venous insufficiency (chronic) (peripheral); R60.0 Localized edema; I89.0 Lymphedema, not elsewhere classified; Z79.82 Long term (current) use of aspirin; E78.5 Hyperlipidemia, unspecified; M19.90 Unspecified osteoarthritis, unspecified site; Z79.899 Other long term (current) drug therapy; E66.3 Overweight; Z68.26 Body mass index [BMI] 26.0-26.9, adult
CPT/HCPCS: 29581; 99213; G0463

== ENCOUNTER → 2022-03-14 | Outpatient (CLI) | payer MEDICARE, SELFPAY ==
[2022-03-14 09:18] LABS: ALB/GLOB Ratio 0.9 RATIO (0.9-2.4); AST(SGOT) 12 U/L (15-37); Alanine Aminotransfer ALT/SGPT 23 U/L (13-56); Albumin, Serum 3.1 g/dL (3.2-5.0); Alkaline Phosphatase 78 U/L (45-117); Anion Gap 6 (5-15); BUN 24 mg/dL (7-18); BUN/Creat Ratio 26.6 RATIO (10-20); Calcium,Total 8.9 mg/dL (8.5-10.1); Chloride 106 mmol/L (98-107); Cholesterol 171 mg/dL (200); EST Glomerular Filtration Rate 66 mL/min (>60); Est Glom Filt Rate - Afr Amer 79 mL/min (>60); Globulin 3.5 g/dL (2.2-4.2); Glucose 89 mg/dL (74-106); High Density Lipoprotein 63 mg/dL; Potassium 3.5 mmol/L (3.5-5.1); Protein, Total 6.6 g/dL (6.4-8.2); Sodium Level 143 mmol/L (136-145); Triglycerides 79 mg/dL; Very Low Density Lipoprotein 16 mg/dL (5-40)
[2022-03-14 09:20] LABS: Vitamin D,25 Hydroxy 32.8 ng/mL
== END | disposition home or self-care (01) ==
LOC: LAB 08:03
PROVIDERS: PCP Nurse Practitioner Family; Referring Provider Nurse Practitioner Family; Visit Provider Nurse Practitioner Family
DX: I10 Essential (primary) hypertension (principal); E78.5 Hyperlipidemia, unspecified; E55.9 Vitamin D deficiency, unspecified
CPT/HCPCS: 36415; 80053; 80061; 82306

== ENCOUNTER → 2022-09-12 | Outpatient (CLI) | payer MEDICARE, SELFPAY ==
[2022-09-12 07:22] LABS: Hematocrit 39.4 % (37-47); Hemoglobin 12.5 g/dL (12.0-15.0); Mean Corp Hgb Conc 31.7 g/dL (32-36); Mean Corpuscular Hgb 28.1 pg (27.0-32.0); Mean Corpuscular Volume 88.5 fL (81-99); Mean Platelet Vol. 10.1 fl (6.2-12.0); Platelet Count 181 K/mm3 (150-450); RBC Distribution Width SD 42.3 fl (35.1-43.9); Red Blood Count 4.45 M/mm3 (4.2-5.4); White Blood Count 4.8 K/mm3 (4.4-11.0)
[2022-09-12 07:46] LABS: Microalbumin,Random Urine 16.4 mg/L (NO RANGE EST.)
[2022-09-12 07:59] LABS: BUN 18 mg/dL (7-18); Creatinine, Serum 0.76 mg/dL (0.55-1.02); EST Glomerular Filtration Rate 80 mL/min (>60); Est Glom Filt Rate - Afr Amer 96 mL/min (>60); Glucose 98 mg/dL (74-106)
[2022-09-12 08:00] LABS: ALB/GLOB Ratio 1.1 RATIO (0.9-2.4); AST(SGOT) 18 U/L (15-37); Alanine Aminotransfer ALT/SGPT 21 U/L (13-56); Albumin, Serum 3.3 g/dL (3.2-5.0); Alkaline Phosphatase 68 U/L (45-117); Anion Gap 1 (5-15); BUN/Creat Ratio 23.6 RATIO (10-20); Calcium,Total 8.6 mg/dL (8.5-10.1); Chloride 112 mmol/L (98-107); Cholesterol 161 mg/dL (200); Globulin 3.1 g/dL (2.2-4.2); High Density Lipoprotein 64 mg/dL; Potassium 4.1 mmol/L (3.5-5.1); Protein, Total 6.4 g/dL (6.4-8.2); Sodium Level 143 mmol/L (136-145); Triglycerides 33 mg/dL; Very Low Density Lipoprotein 7 mg/dL (5-40)
[2022-09-12 08:16] LABS: Vitamin D,25 Hydroxy 58.1 ng/mL
== END | disposition home or self-care (01) ==
LOC: LAB 06:50
PROVIDERS: PCP Nurse Practitioner Family; Referring Provider Nurse Practitioner Family; Visit Provider Nurse Practitioner Family
DX: E78.5 Hyperlipidemia, unspecified (principal); I10 Essential (primary) hypertension; E55.9 Vitamin D deficiency, unspecified
CPT/HCPCS: 36415; 80053; 80061; 82043; 82306; 85027

== ENCOUNTER → 2023-03-29 | Outpatient (CLI) | payer MEDICARE, SELFPAY ==
--- OUTSIDE RECORDS SUMMARY | 2023-03-29 08:10 | XMS RPT_ITS | CCD ---
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 Role Phone POLO SKINNER - WESTLEY RODRIGUEZ Primary Care Phys ician Westley Crowley CNP Primary Care Provider TALHA BARRAGAN Referring Unavailable WESTLEY CROWLEY Primary Care Unavailable WESTLEY CROWLEY Primary Care Unavailable ALYSHA THOMPSON Referring Unavailable WESTLEY CROWLEY Primary Care Unavailable Medications Current Medications Medication Drug Class(es) Dates Sig (Normalized) Sig (Original) atorvastatin 10 mg oral tablet (1 source) HMG-CoA Reductase Inhibitor Start: 03-10-2021 End: 12-05-2021 atorvastatin 10 mg oral tablet Dose : 10 mg = 1 tab(s), Oral, qDay, Take 1 tablet by mouth daily, # 90 tab(s), 2 Refill(s), Pharmacy: [facility], 167.6, cm, 03/10/21 15:38:00 EST, Height, kg, 03/10/21 15:38:00 EST, Dosing Weight Start Date: 03/10/21 Stop Date: 12/05/21 Status: Ordered celecoxib 100 mg oral capsule (1 source) Nonsteroidal Anti-inflammatory Drug Start: 03-10-2021 End: 12-05-2021 celecoxib 100 mg oral capsule Dose : 100 mg = 1 cap(s), Oral, qDay, TAKE 1 CAPSULE DAILY, # 90 cap(s), 2 Refill(s), Pharmacy: [facility], 167.6, cm, 03/10/21 15:38:00 EST, Height, kg, 03/10/21 15:38:00 EST, Dosing Weight Start Date: 03/10/21 Stop Date: 12/05/21 Status: Ordered furosemide 20 mg oral tablet (1 source) Loop Diuretic Start: 02-08-2021 Lasix 20 mg oral tablet Dose : 20 mg = 1 tab(s), Oral, qDay, # 90 tab(s), 3 Refill(s), Pharmacy: [facility], HTN (hypertension) Edema of leg, 167.6, cm, 02/08/21 13:52:00 EST, Height, kg, 02/08/21 13:52:00 EST, Dosing Weight Start Date: 02/08/21 Status: Ordered polymyxin b 17720 unt/ml / trimethoprim 1 mg/ml ophthalmic solution (1 source) Dihydrofolate Reductase Inhibitor Antibacterial, Polymyxin-class Antibacterial Start: 03-08-2022 End: 03-15-2022 take 1 drop(s) into the eye(s) every four hours trimethoprim-polym yxin (POLYTRIM) 10,000 unit- 1 mg/mL ophthalmic solution Use 1 Drop in both eyes every 4 hours for 7 days. 10 mL 0 03/08/2022 03/15/2022 Active Completed/Discontinued Medications Medication Drug Class(es) Dates Sig (Normalized) Sig (Original) [id number] 200 actuat albuterol 0.09 mg/actuat metered dose inhaler (1 source) beta2-Adrenergic Agonist Start: 03-21-2022 take 2 puff(s) by inhalation every four hours as needed albuterol HFA (PROAIR HFA) 90 mcg/actuation inhaler Inhale 2 Puffs as instructed every 4 hours as needed. 18 g 0 03/21/2022 Active Problems Problem Classification Problem Date Documented Da te Episodic/Chronic Anxiety disorders (1 source) Generalized anxiety disorder 12-20-2018 Chronic Disorders of lipid metabolism (1 source) Hyperlipidemia 12-20-2018 Chronic Essential hypertension (1 source) Hypertensive disorder 08-21-2019 Chronic Heart valve disorders (2 sources) Mitral valve regurgitation; Translations: [Tricuspid valve regurgitation] 12-20-2018 Chronic Heart valve disorders (1 source) Pansystolic murmur 12-14-2020 Episodic Osteoarthritis (1 source) Osteoarthritis 12-20-2018 Chronic Other diseases of veins and lymphatics (1 source) Lymphedema 02-08-2021 Chronic Other diseases of veins and lymphatics (1 source) Venous insufficiency of leg 03-10-2021 Episodic Results Test Name Value Interpretation Reference Range Facil ity Vital Signs Date Time Vital Sign Value Performing Clinician Akil ayala 03-21-2022 09:53-0500 Body temperature 98.71 [degF] Alysha Donna STOVE FITTER.PROGRAM DEVELOPMENT MANAGER Work Phone: [facility] 03-21-2022 09:53-0500 Body weight 83.46 kg Alysha Donna STOVE FITTER.PROGRAM DEVELOPMENT MANAGER Work Phone: [facility] 03-21-2022 09:53-0500 Diastolic blood pressure 72 mm[Hg] Alysha Donna STOVE FITTER.PROGRAM DEVELOPMENT MANAGER Work Phone: [facility] 03-21-2022 09:53-0500 Heart rate 88 /min Alysha Donna STOVE FITTER.PROGRAM DEVELOPMENT MANAGER Work Phone: [facility] 03-21-2022 09:53-0500 Respiratory rate 16 /min Alysha Odnna STOVE FITTER.PROGRAM DEVELOPMENT MANAGER Work Phone: [facility] 03-21-2022 09:53-0500 SaO2% (BldA) [Mass fraction] 96 % Alysha Donna STOVE FITTER.PROGRAM DEVELOPMENT MANAGER Work Phone: [facility] 03-21-2022 09:53-0500 Systolic blood pressure 138 mm[Hg] Alysha Donna STOVE FITTER.PROGRAM DEVELOPMENT MANAGER Work Phone: [facility] 03-15-2022 07:46-0500 Body temperature 97.9 [degF] Talha Barragan STOVE FITTER.PROGRAM DEVELOPMENT MANAGER Work Phone: [facility] 03-15-2022 07:46-0500 Body weight 86.46 kg Talha Barragan STOVE FITTER.PROGRAM DEVELOPMENT MANAGER Work Phone: [facility] 03-15-2022 07:46-0500 Diastolic blood pressure 86 mm[Hg] Talha Barragan STOVE FITTER.PROGRAM DEVELOPMENT MANAGER Work Phone: [facility] 03-15-2022 07:46-0500 Heart rate 73 /min Talha Barragan STOVE FITTER.PROGRAM DEVELOPMENT MANAGER Work Phone: [facility] 03-15-2022 07:46-0500 Respiratory rate 18 /min Talha Barragan STOVE FITTER.PROGRAM DEVELOPMENT MANAGER Work Phone: [facility] 03-15-2022 07:46-0500 SaO2% (BldA) [Mass fraction] 97 % Talha Barragan STOVE FITTER.PROGRAM DEVELOPMENT MANAGER Work Phone: [facility] 03-15-2022 07:46-0500 Systolic blood pressure 162 mm[Hg] Talha Barragan STOVE FITTER.PROGRAM DEVELOPMENT MANAGER Work Phone: [facility] Encounters Encounter Date Encounter Type Care Provider Facility Start: 03-21-2022 End: 03-21-2022 ambulatory WESTLEY CROWLEY Facility:[facility] Start: 03-21-2022 End: 03-21-2022 Patient encounter procedure Alysha Thompson STOVE FITTER.PROGRAM DEVELOPMENT MANAGER Work Phone: [facility] Procedures Date Procedure Procedure Detail Performing Clinician Start: 10-21-2013 Echocardiography KAREN CROWLEY STOVE FITTER - PROGRAM DEVELOPMENT MANAGER Plan of Treatment Date Care Activity Detail Author Start: 03-26-2021 ADVANCE DIRECTIVE DISCUSSION ADVANCE DIRECTIVE DISCUSSION [facility] Start: 03-26-2021 DEPRESSION ASSESSMENT DEPRESSION ASS ESSMENT [facility] Start: 2017 BONE DENSITY BONE DENSITY [facility] Start: 2017 PNEUMOCOCCAL: 65+ (1 - PCV) PNEUMOCOCCAL: 65+ (1 - PCV) [facility] Start: 2002 SHINGRIX VACCINE (1 of 2) SHINGRIX V ACCINE (1 of 2) [facility] Start: 1997 COLOGUARD (FIT-DNA) COLOGUARD (FIT-D NA) [facility] Start: 1997 Colonoscopy COLONOSCOPY [facility] Start: 1997 COLORECTAL CANCER SCREENING COLORECTAL CANCER SCREENING [facility] Start: [address] COLONOGRAPHY [facility] Start: 1997 DIABETES SCREEN DIABETES SCREEN [facility] Start: 1997 FECAL OCCULT BLOOD FECAL OCCULT BLOO D [facility] Start: 1997 LIPID SCREEN LIPID SCREEN [facility] Start: 1997 SIGMOIDOSCOPY SIGMOIDOSCOPY [facility] Start: 1992 Mammography MAMMOGRAM [facility] Start: 06-01-1971 Urine microalbumin profile DTAP,TDAP ,TD (1 - Tdap) [facility] Start: 1970 HEPATITIS C SCREENING HEPATITIS C SC YADIRA [facility] Immunizations Immunization Date Immunization Notes Care Provider Fa cility 01-13-2021 influenza, injectabl e, quadrivalent, contains preservative; Translations: [Fluarix PF Quadrivalent ] WESTLEY CROWLEY STOVE FITTER - PROGRAM DEVELOPMENT MANAGER [facility] 07-04-2020 SARS-CoV-2 mRNA (tozinameran) vaccine WESTLEY CROWLEY STOVE FITTER - PROGRAM DEVELOPMENT MANAGER [facility] 06-10-2020 SARS-CoV-2 mRNA (tozinameran) vaccine WESTLEY CROWLEY STOVE FITTER - PROGRAM DEVELOPMENT MANAGER [facility] 12-30-2018 influenza, injectabl e, quadrivalent, preservative free; Translations: [Fluarix PF Quadrivalent ] WESTLEY CROWLEY STOVE FITTER - Dialoggy [facility] 12-17-2017 influenza virus vacc ine, unspecified formulation WESTLEY CROWLEY STOVE FITTER tagga [facility] 01-25-2016 influenza virus vacc ine, unspecified formulation WESTLEY CROWLEY STOVE FITTER - Dialoggy [facility] 03-12-2015 pneumococcal polysaccharide vaccine, 23 valent WESTLEY CROWLEY STOVE FITTER tagga [facility] 01-24-2015 influenza virus vacc ine, unspecified formulation WESTLEY CROWLEY STOVE FITTER - PROGRAM DEVELOPMENT MANAGER [facility] 08-25-2014 tetanus toxoid, redu itzel diphtheria toxoid, and acellular pertussis vaccine, adsorbed WESTLEY CROWLEY STOVE FITTER - PROGRAM DEVELOPMENT MANAGER [facility] 12-24-2013 influenza virus vacc ine, unspecified formulation WESTLEY CROWLEY STOVE FITTER - PROGRAM DEVELOPMENT MANAGER [facility] Payers Date Payer Category Payer Medicare [employer] [place] [place] [id number] 2021-Present [phone] [address] [place] [address] [facility] [id number] 2021 Medicare [id number] Social History Date Type Detail Facility Start: 12-20-2018 End: 03-08-2022 Tobacco smoking status Never smoked tobacco (finding) [facility] Sex Assigned At Female [facility] Start: 03-08-2022 Tobacco use and exposure Smokeless tobacco non-user [facility] Work Phone: Start: 1950 Sex Assigned At Not on file [facility] NEGATED: Highlighted rowStart: NINF History of tobacco use Passive smoker [facility] Work Phone: Clinical Notes 03-08-2022 to 03-21-2022 Alysha Thompson APRN.PROGRAM DEVELOPMENT MANAGER - 03/21/2022 9:57 AM ESTTalha Barragan APRN.PROGRAM DEVELOPMENT MANAGER - 03/15/2022 7:52 AM EST Note Date & Type Note Facility 03-21-2022 Note HNO ID: [id number] Author: RT Vane(R) Service: Nuclear Medicine Author Type: Technologist Type: Progress Notes Filed: 03/21/2022 10:41 AM Note Text: Radiology Service Progress Note PATIENT NAME: Nicki Lopez DATE OF SERVICE: March 21, 2022 TIME: 10:36 AM PATIENT IDENTITY VERIFICATION COMPLETED USING TWO (2) IDENTIFIERS: Name and Date of confirmed by patient verbally. FALL SCREENING: Has the patient had 2 falls in the last year or 1 fall with injury or currently using an Ambulatory Assistive Device (Walker, Cane, Wheelchair, Crutches, etc.)? No PATIENT GENDER DATA: Female. status: : No status: NO. PATIENT RELEVANT IMPLANT DATA REVIEWED: Not Applicable RADIOLOGY DEPARTMENT: General X-ray: Exam(s) Completed: Chest X-Ray PERIPHERAL IV DATA: Not applicable SIGNED BY: RT Vane(R) March 21, 2022 10:36 AM [facility] 03-21-2022 Note HNO ID: [id number] Author: Alysha Thompson APRN.PROGRAM DEVELOPMENT MANAGER Service: ? Author Type: Nurse Practitioner Type: Progress Notes Filed: 03/21/2022 11:32 AM Note Text: Subjective Cough Pertinent negatives include no chest pain, no chills, no ear pain, no headaches, no sore throat, no myalgias, no shortness of breath and no wheezing. HPI Nicki Lopez is a 71 year old female who presents today for CC of cough that wont go away She was diagnosed on 03.08.2022 with pneumonia on cxr, took doxycycline and prednisone, started to improve, but came back to on 03.15.2022 stating seem to be worsening, provider added augmentin, and has develop diarrhea since taking. States she is still coughing with using tessalon perls BP 138/72 Pulse 88 Temp 37.1 ?C (98.7 ?F) Resp 16 Wt 83.5 kg (184 lb) SpO2 96% Social History Tobacco Use Smoking status: Never Passive exposure: Never Smokeless tobacco: Never History reviewed. No pertinent past medical history. I have confirmed and edited as necessary, the [facility] Review of Systems Constitutional: Negative for chills and fever. HENT: Negative for congestion, ear pain, sinus pain and sore throat. Respiratory: Positive for cough. Negative for sputum production, shortness of breath and wheezing. Cardiovascular: Negative for chest pain. Musculoskeletal: Negative for myalgias. Neurological: Negative for headaches. Objective Physical Exam Vitals and nursing note reviewed. HENT: Head: Normocephalic and atraumatic. Right Ear: Tympanic membrane, ear canal and external ear normal. Left Ear: Tympanic membrane, ear canal and external ear normal. Nose: No mucosal edema, congestion or rhinorrhea. Right Sinus: No maxillary sinus tenderness or frontal sinus tenderness. Left Sinus: No maxillary sinus tenderness or frontal sinus tenderness. Mouth/Throat: Pharynx: Uvula midline. No oropharyngeal exudate or posterior oropharyngeal erythema. Cardiovascular: Rate and Rhythm: Normal rate and regular rhythm. Heart sounds: Normal heart sounds. Pulmonary: Effort: Pulmonary effort is normal. Breath sounds: Normal breath sounds. Lymphadenopathy: Head: Right side of head: No submental, submandibular or tonsillar adenopathy. Left side of head: No submental, submandibular or tonsillar adenopathy. Cervical: No cervical adenopathy. Skin: General: Skin is warm and dry. Neurological: Mental Status: She is alert. Psychiatric: Mood and Affect: Affect normal. ASSESSMENT/PLAN: 1. Acute cough - ICD9: 786.2, ICD10: R05.1 (primary diagnosis) Albuterol inhaler Stop augmentin - probiotic as ordered Carolina chu Follow up with PCP next week - XR CHEST 2V FRONTAL/LAT 2. History of pneumonia - ICD9: V12.61, ICD10: Z87.01 - XR CHEST 2V FRONTAL/LAT - interpreted by: Niecy Peralta MD RESULT: Lines, tubes, and devices: None. Lungs and pleura: No consolidation. No lung mass. No pleural effusion. No pneumothorax. Cardiomediastinal silhouette: Stable cardiomediastinal silhouette. Bones and soft tissues: Degenerative changes are present within the thoracic spine. IMPRESSION: No acute radiographic abnormality. Diagnosis and treatment plan were discussed and questions were answered to the patient's satisfaction. Pt acknowledged understanding of concepts and follow up plan. Specific signs and symptoms that would indicate the need for higher level of care were discussed in detail warranting prompt ER evaluation. Alysha Thompson APRN.[facility] 03-21-2022 History of Present illness Narrative Subjective Cough Pertinent negatives include no chest pain, no chills, no ear pain, no headaches, no sore throat, no myalgias, no shortness of breath and no wheezing. HPI Nicki Lopez is a 71 year old female who presents today for CC of cough that wont go away She was diagnosed on 03.08.2022 with pneumonia on cxr, took doxycycline and prednisone, started to improve, but came back to on 03.15.2022 stating seem to be worsening, provider added augmentin, and has develop diarrhea since taking. States she is still coughing with using tessalon perls BP 138/72 Pulse 88 Temp 37.1 C (98.7 F) Resp 16 Wt 83.5 kg (184 lb) SpO2 96% Social History Tobacco Use Smoking status: Never Passive exposure: Never Smokeless tobacco: Never History reviewed. No pertinent past medical history. I have confirmed and edited as necessary, the [facility] Review of Systems Constitutional: Negative for chills and fever. HENT: Negative for congestion, ear pain, sinus pain and sore throat. Respiratory: Positive for cough. Negative for sputum production, shortness of breath and wheezing. Cardiovascular: Negative for chest pain. Musculoskeletal: Negative for myalgias. Neurological: Negative for headaches. Objective Physical Exam Vitals and nursing note reviewed. HENT: Head: Normocephalic and atraumatic. Right Ear: Tympanic membrane, ear canal and external ear normal. Left Ear: Tympanic membrane, ear canal and external ear normal. Nose: No mucosal edema, congestion or rhinorrhea. Right Sinus: No maxillary sinus tenderness or frontal sinus tenderness. Left Sinus: No maxillary sinus tenderness or frontal sinus tenderness. Mouth/Throat: Pharynx: Uvula midline. No oropharyngeal exudate or posterior oropharyngeal erythema. Cardiovascular: Rate and Rhythm: Normal rate and regular rhythm. Heart sounds: Normal heart sounds. Pulmonary: Effort: Pulmonary effort is normal. Breath sounds: Normal breath sounds. Lymphadenopathy: Head: Right side of head: No submental, submandibular or tonsillar adenopathy. Left side of head: No submental, submandibular or tonsillar adenopathy. Cervical: No cervical adenopathy. Skin: General: Skin is warm and dry. Neurological: Mental Status: She is alert. Psychiatric: Mood and Affect: Affect normal. ASSESSMENT/PLAN: 1. Acute cough - ICD9: 786.2, ICD10: R05.1 (primary diagnosis) Albuterol inhaler Stop augmentin - probiotic as ordered Carolina chu Follow up with PCP next week - XR CHEST 2V FRONTAL/LAT 2. History of pneumonia - ICD9: V12.61, ICD10: Z87.01 - XR CHEST 2V FRONTAL/LAT - interpreted by: Niecy Peralta MD RESULT: Lines, tubes, and devices: None. Lungs and pleura: No consolidation. No lung mass. No pleural effusion. No pneumothorax. Cardiomediastinal silhouette: Stable cardiomediastinal silhouette. Bones and soft tissues: Degenerative changes are present within the thoracic spine. IMPRESSION: No acute radiographic abnormality. Diagnosis and treatment plan were discussed and questions were answered to the patient's satisfaction. Pt acknowledged understanding of concepts and follow up plan. Specific signs and symptoms that would indicate the need for higher level of care were discussed in detail warranting prompt ER evaluation. Alysha Thompson APRN.PROGRAM DEVELOPMENT MANAGER documented in this encounter [facility] 03-15-2022 Note HNO ID: [id number] Author: Talha Barragan APRN.PROGRAM DEVELOPMENT MANAGER Service: ? Author Type: Nurse Practitioner Type: Progress Notes Filed: 03/15/2022 8:02 AM Note Text: This note was created using Bukuperiter. Subjective Nicki Lopez is a 71 year old female. 71 year old female with no significant PMH presents for cough. Endorses she was seen here a week ago and seen for similar. CXR revealed ?? Lower infiltrates and she was treated for a pneumonina COmpleted x 5 days of Doxycyline. States yesterday Was feeling good and out doing errands until she woke up in middle of night +coughing States she has been up since 0100. Denies hemoptysis. Denies CP Denies abdominal pain. Denies SOB. Has appointment March 30 with PCP, but presents today with concerns over impending storm and holidays. The history is provided by the patient. No law tutor was used. Cough This is a new problem. The current episode started more than 1 week ago. The problem occurs constantly. The problem has not changed since onset.The cough is Non-productive. There has been no fever. Pertinent negatives include no chest pain, no chills, no sweats, no weight loss, no ear congestion, no ear pain, no headaches, no rhinorrhea, no sore throat, no myalgias, no shortness of breath, no wheezing and no eye redness. Treatments tried: ATB and Prednisone. The treatment provided moderate relief. She is not a smoker. Her past medical history is significant for pneumonia. Her past medical history does not include bronchitis, bronchiectasis, COPD, emphysema or asthma. History reviewed. No pertinent past medical history. No past surgical history on file. ALLERGIES Patient has no known allergies. MEDICATIONS predniSONE (DELTASONE) 10 mg tablet Take 4 tabs daily for 3 days, then 2 tabs daily for 3 days, then 1 tab daily for 3 days with food. trimethoprim-polymyxin (POLYTRIM) 10,000 unit- 1 mg/mL ophthalmic solution Use 1 Drop in both eyes every 4 hours for 7 days. amoxicillin-clavulanic acid (AUGMENTIN) 875-125 mg per tablet Take 1 tablet by mouth twice daily for 7 days. benzonatate (TESSALON PERLES) 100 mg capsule Take 1 capsule by mouth three times daily as needed for cough. No family history on file. Social History Tobacco Use Smoking status: Never Passive exposure: Never Smokeless tobacco: Never Review of Systems Constitutional: Negative for chills, fatigue, fever and weight loss. HENT: Negative for ear pain, rhinorrhea and sore throat. Eyes: Negative for redness. Respiratory: Positive for cough. Negative for apnea, shortness of breath and wheezing. Cardiovascular: Negative for chest pain, palpitations and leg swelling. Gastrointestinal: Negative for abdominal pain, diarrhea and nausea. Musculoskeletal: Negative for arthralgias, back pain and myalgias. Skin: Negative for color change, pallor, rash and wound. Allergic/Immunologic: Negative for environmental allergies, food allergies and immunocompromised state. Neurological: Negative for dizziness, facial asymmetry and headaches. Hematological: Negative for adenopathy. Does not bruise/bleed easily. Psychiatric/Behavioral: Negative for agitation and behavioral problems. Objective BP 162/86 Pulse 73 Temp 36.6 ?C (97.9 ?F) (Tympanic) Resp 18 Wt 86.5 kg (190 lb 9.6 oz) SpO2 97% Physical Exam Vitals and nursing note reviewed. Constitutional: General: She is not in acute distress. Appearance: Normal appearance. She is normal weight. She is not ill-appearing, toxic-appearing or diaphoretic. HENT: Head: Normocephalic and atraumatic. Right Ear: Ear canal and external ear normal. Left Ear: Ear canal and external ear normal. Nose: Nose normal. No congestion or rhinorrhea. Mouth/Throat: Mouth: Mucous membranes are moist. Pharynx: No oropharyngeal exudate or posterior oropharyngeal erythema. Eyes: General: Right eye: No discharge. Left eye: No discharge. Extraocular Movements: Extraocular movements intact. Conjunctiva/sclera: Conjunctivae normal. Pupils: Pupils are equal, round, and reactive to light. Cardiovascular: Rate and Rhythm: Normal rate and regular rhythm. Pulses: Normal pulses. Heart sounds: Normal heart sounds. No murmur heard. No friction rub. Pulmonary: Effort: Pulmonary effort is normal. No respiratory distress. Breath sounds: Normal breath sounds. No stridor. No wheezing, rhonchi or rales. Chest: Chest wall: No tenderness. Abdominal: General: Abdomen is flat. There is no distension. Palpations: Abdomen is soft. There is no mass. Tenderness: There is no abdominal tenderness. There is no right CVA tenderness, left CVA tenderness, guarding or rebound. Hernia: No hernia is present. Musculoskeletal: General: No swelling, tenderness, deformity or signs of injury. Normal range of motion. Cervical back: Normal range of motion and neck supple. No rigidity. Right lower leg: No edema. Le (more content not included)... [facility] 03-15-2022 History of Present illness Narrative This note was created using Bukuperiter. Subjective Nicki Lopez is a 71 year old female. 71 year old female with no significant PMH presents for cough. Endorses she was seen here a week ago and seen for similar. CXR revealed ?? Lower infiltrates and she was treated for a pneumonina COmpleted x 5 days of Doxycyline. States yesterday Was feeling good and out doing errands until she woke up in middle of night +coughing States she has been up since 0100. Denies hemoptysis. Denies CP Denies abdominal pain. Denies SOB. Has appointment March 30 with PCP, but presents today with concerns over impending storm and holidays. The history is provided by the patient. No law tutor was used. Cough This is a new problem. The current episode started more than 1 week ago. The problem occurs constantly. The problem has not changed since onset.The cough is Non-productive. There has been no fever. Pertinent negatives include no chest pain, no chills, no sweats, no weight loss, no ear congestion, no ear pain, no headaches, no rhinorrhea, no sore throat, no myalgias, no shortness of breath, no wheezing and no eye redness. Treatments tried: ATB and Prednisone. The treatment provided moderate relief. She is not a smoker. Her past medical history is significant for pneumonia. Her past medical history does not include bronchitis, bronchiectasis, COPD, emphysema or asthma. History reviewed. No pertinent past medical history. No past surgical history on file. ALLERGIES Patient has no known allergies. MEDICATIONS predniSONE (DELTASONE) 10 mg tablet Take 4 tabs daily for 3 days, then 2 tabs daily for 3 days, then 1 tab daily for 3 days with food. trimethoprim-polymyxin (POLYTRIM) 10,000 unit- 1 mg/mL ophthalmic solution Use 1 Drop in both eyes every 4 hours for 7 days. amoxicillin-clavulanic acid (AUGMENTIN) 875-125 mg per tablet Take 1 tablet by mouth twice daily for 7 days. benzonatate (TESSALON PERLES) 100 mg capsule Take 1 capsule by mouth three times daily as needed for cough. No family history on file. Social History Tobacco Use Smoking status: Never Passive exposure: Never Smokeless tobacco: Never Review of Systems Constitutional: Negative for chills, fatigue, fever and weight loss. HENT: Negative for ear pain, rhinorrhea and sore throat. Eyes: Negative for redness. Respiratory: Positive for cough. Negative for apnea, shortness of breath and wheezing. Cardiovascular: Negative for chest pain, palpitations and leg swelling. Gastrointestinal: Negative for abdominal pain, diarrhea and nausea. Musculoskeletal: Negative for arthralgias, back pain and myalgias. Skin: Negative for color change, pallor, rash and wound. Allergic/Immunologic: Negative for environmental allergies, food allergies and immunocompromised state. Neurological: Negative for dizziness, facial asymmetry and headaches. Hematological: Negative for adenopathy. Does not bruise/bleed easily. Psychiatric/Behavioral: Negative for agitation and behavioral problems. Objective BP 162/86 Pulse 73 Temp 36.6 C (97.9 F) (Tympanic) Resp 18 Wt 86.5 kg (190 lb 9.6 oz) SpO2 97% Physical Exam Vitals and nursing note reviewed. Constitutional: General: She is not in acute distress. Appearance: Normal appearance. She is normal weight. She is not ill-appearing, toxic-appearing or diaphoretic. HENT: Head: Normocephalic and atraumatic. Right Ear: Ear canal and external ear normal. Left Ear: Ear canal and external ear normal. Nose: Nose normal. No congestion or rhinorrhea. Mouth/Throat: Mouth: Mucous membranes are moist. Pharynx: No oropharyngeal exudate or posterior oropharyngeal erythema. Eyes: General: Right eye: No discharge. Left eye: No discharge. Extraocular Movements: Extraocular movements intact. Conjunctiva/sclera: Conjunctivae normal. Pupils: Pupils are equal, round, and reactive to light. Cardiovascular: Rate and Rhythm: Normal rate and regular rhythm. Pulses: Normal pulses. Heart sounds: Normal heart sounds. No murmur heard. No friction rub. Pulmonary: Effort: Pulmonary effort is normal. No respiratory distress. Breath sounds: Normal breath sounds. No stridor. No wheezing, rhonchi or rales. Chest: Chest wall: No tenderness. Abdominal: General: Abdomen is flat. There is no distension. Palpations: Abdomen is soft. There is no mass. Tenderness: There is no abdominal tenderness. There is no right CVA tenderness, left CVA tenderness, guarding or rebound. Hernia: No hernia is present. Musculoskeletal: General: No swelling, tenderness, deformity or signs of injury. Normal range of motion. Cervical back: Normal range of motion and neck supple. No rigidity. Right lower leg: No edema. Left lower leg: No edema. Lymphadenopathy: Cervical: No cervical adenopathy. Skin: General: Skin is warm and dry. Capillary Refill: Capillary refill takes less than 2 seconds. Coloration: Skin is not jaundiced or pale. Findings: No bruising, erythema, lesion or rash. Neurological: General: No focal deficit present. Mental Status: She is alert and oriented to person, place, and time. Cranial Nerves: No cranial nerve deficit. Sensory: No sensory deficit. Motor: No weakness. Coordination: Coordination normal. Gait: Gait normal. Psychiatric: Mood and Affect: Mood normal. Behavior: Behavior normal. Thought Content: Thought content normal. Judgment: Judgment normal. Assessment and Plan ASSESSMENT/PLAN: 1. Acute cough - ICD9: 786.2, ICD10: R05.1 (primary diagnosis) No red flag Lungs CTA Post tussive vs. Continued infection 2. Pneumonia of both lungs due to infectious organism, unspecified part of lung - ICD9: 483.8, ICD10: J18.9 Seen here a week ago CXR revealed bilateral lower ?? Infilitrates Treated with Doxcycline Had marked improvement until last night. Concerned its not cleared and there is a winter storm coming in No CXR at time, although unsure that would provide much more insight Discussed potential post tussive Will provide Augmentin (initial selection was Doxy as no comorbidity) and Tesaneeshon perlanna marie Follow up with PCP Talha Barragan APRN.PROGRAM DEVELOPMENT MANAGER documented in this encounter [facility] 03-08-2022 Note HNO ID: [id number] Author: RT Anahi(R) Service: ? Author Type: Digital Production Manager Type: Progress Notes Filed: 03/08/2022 6:18 PM Note Text: Radiology Service Progress Note PATIENT NAME: Nicki Lopez DATE OF SERVICE: March 08, 2022 TIME: 6:10 PM PATIENT IDENTITY VERIFICATION COMPLETED USING TWO (2) IDENTIFIERS: Name and Date of confirmed by patient verbally. FALL SCREENING: Has the patient had 2 falls in the last year or 1 fall with injury or currently using an Ambulatory Assistive Device (Walker, Cane, Wheelchair, Crutches, etc.)? No PATIENT GENDER DATA: Female. status: : No status: NO. PATIENT RELEVANT IMPLANT DATA REVIEWED: Yes RADIOLOGY DEPARTMENT: General X-ray: Exam(s) Completed: Chest X-Ray PERIPHERAL IV DATA: Not applicable SIGNED BY: RT Anahi(R) March 08, 2022 6:10 PM [facility] 03-08-2022 Note HNO ID: [id number] Author: Talha Barragan APRN.PROGRAM DEVELOPMENT MANAGER Service: ? Author Type: Nurse Practitioner Type: Progress Notes Filed: 03/08/2022 6:39 PM Note Text: This note was created using [employer]uk[employer]. Subjective Nicki Lopez is a 71 year old female. 71 year old female with no PMH presents for illness. Acute onset of symptoms was earlier this morning. +eye redness +itching +redness +drainage States that grandson has pink eye. She also makes note of cough Has been ongoing for approximately 3 weeks States has been waxing and waning Denies SOB and CP. Denies hemoptysis. I keep getting sick from these kids Denies tobacco usage. The history is provided by the patient. No law tutor was used. Eye Problem This is a new problem. The current episode started today. The problem occurs constantly. The problem has been unchanged. Associated symptoms include congestion and coughing. Pertinent negatives include no abdominal pain, anorexia, arthralgias, change in bowel habit, chest pain, chills, diaphoresis, fatigue, fever, headaches, joint swelling, myalgias, nausea, neck pain, numbness, rash, sore throat, swollen glands, urinary symptoms, vertigo, visual change, vomiting or weakness. Nothing aggravates the symptoms. She has tried nothing for the symptoms. The treatment provided no relief. No past medical history on file. No past surgical history on file. ALLERGIES Patient has no known allergies. MEDICATIONS predniSONE (DELTASONE) 10 mg tablet Take 4 tabs daily for 3 days, then 2 tabs daily for 3 days, then 1 tab daily for 3 days with food. trimethoprim-polymyxin (POLYTRIM) 10,000 unit- 1 mg/mL ophthalmic solution Use 1 Drop in both eyes every 4 hours for 7 days. doxycycline monohydrate 100 mg tablet Take 1 tablet by mouth twice daily for 5 days. No family history on file. Social History Tobacco Use Smoking status: Never Passive exposure: Never Smokeless tobacco: Never Review of Systems Constitutional: Negative for chills, diaphoresis, fatigue and fever. HENT: Positive for congestion. Negative for sore throat. Eyes: Positive for discharge, redness and itching. Negative for photophobia, pain and visual disturbance. Respiratory: Positive for cough. Negative for apnea, choking and chest tightness. Cardiovascular: Negative for chest pain. Gastrointestinal: Negative for abdominal pain, anorexia, change in bowel habit, nausea and vomiting. Musculoskeletal: Negative for arthralgias, joint swelling, myalgias and neck pain. Skin: Negative for color change, pallor and rash. Allergic/Immunologic: Negative for environmental allergies, food allergies and immunocompromised state. Neurological: Negative for dizziness, vertigo, facial asymmetry, weakness, numbness and headaches. Hematological: Negative for adenopathy. Does not bruise/bleed easily. Psychiatric/Behavioral: Negative for agitation and behavioral problems. Objective BP 138/86 Pulse 82 Temp 37.4 ?C (99.3 ?F) Resp 16 Wt 85.3 kg (188 lb) SpO2 96% Physical Exam Vitals and nursing note reviewed. Constitutional: General: She is not in acute distress. Appearance: Normal appearance. She is normal weight. She is not ill-appearing, toxic-appearing or diaphoretic. HENT: Head: Normocephalic and atraumatic. Right Ear: Ear canal and external ear normal. Left Ear: Ear canal and external ear normal. Nose: Nose normal. No congestion or rhinorrhea. Mouth/Throat: Mouth: Mucous membranes are moist. Pharynx: No oropharyngeal exudate or posterior oropharyngeal erythema. Eyes: General: No scleral icterus. Right eye: No discharge. Left eye: No discharge. Extraocular Movements: Extraocular movements intact. Conjunctiva/sclera: Conjunctivae normal. Pupils: Pupils are equal, round, and reactive to light. Cardiovascular: Rate and Rhythm: Normal rate and regular rhythm. Pulses: Normal pulses. Heart sounds: Normal heart sounds. No murmur heard. No friction rub. Pulmonary: Effort: Pulmonary effort is normal. No respiratory distress. Breath sounds: Normal breath sounds. No stridor. No wheezing, rhonchi or rales. Chest: Chest wall: No tenderness. Abdominal: General: Abdomen is flat. There is no distension. Palpations: Abdomen is soft. There is no mass. Tenderness: There is no abdominal tenderness. There is no right CVA tenderness, left CVA tenderness, guarding or rebound. Hernia: No hernia is present. Musculoskeletal: General: No swelling, tenderness, deformity or signs of injury. Normal range of motion. Cervical back: Normal range of motion and neck supple. No rigidity. Right lower leg: No edema. Left lower leg: No edema. Lymphadenopathy: Cervical: No cervical adenopathy. Skin: General: Skin is warm and dry. Coloration: Skin is not jaundiced or pale. Findings: No bruising, erythema, lesion or rash. Neurological: General: No focal deficit present. (more content not included)... [facility] Evaluation + Plan note Future Appointments Appointment Date:09/15/2021 04:00:00 PM Scheduled Provider:WESTLEY CROWLEY STOVE FITTER - JENNIFER Location:[facility] Appointment Type:PC OV Follow Up [facility] Acute [facility]- Primary History of pneumonia Personal history of pneumonia (recurrent) documented in this encounter [facility] course Narrative No data available for this section [facility] Hospital Discharge instructions No data available for this section [facility] Progress note No data available for this section [facility] Summary Purpose Family History No Family History Records FoundNo Family History Records Found Advance Directives No Advanced Directives Records FoundNo Advanced Directives Records Found Additional Source Comments Care Team (unrecognized sect ion and content) [employer] Worker Relationship Specialty Start Date End Date Westley Crowley, PROGRAM DEVELOPMENT MANAGER [address] [place] [address] PCP - General Family Medicine 03/15/22 INFORMATION SOURCE (unrecogn ized section and content) DATE CREATED AUTHOR AUTHOR'S ORGANIZ ATION 03/21/2022 [facility] Source Comments (unrecognize d section and content) In the event this informatio n is protected by the Federal Confidentiality of Alcohol and Drug Abuse Patient Records regulations: The Federal rules restrict any use of the information to criminally investigate or prosecute any alcohol or drug abuse patient.[facility] event this information is protected by the Federal Confidentiality of Alcohol and Drug Abuse Patient Records regulations: The Federal rules restrict any use of the information to criminally investigate or prosecute any alcohol or drug abuse patient.[facility] Reason for Visit (unrecogniz ed section and content) Reason Comments Cough seen on 03/15 FOR RECORDS PERTAINING TO PATIENTS WHO ARE OR HAVE BEEN ENROLLED IN A CHEMICAL DEPENDENCY/SUBSTANCEABUSE PROGRAM, SOME INFORMATION MAY BE OMITTED. This clinical summary was aggregated from multiple sources. Caution should be exercised in using it in the provision of clinical care. This summary normalizes information from multiple sources, and as a consequence, information in this document may materially change the coding, format and clinical context of patient data. In addition, data may be omitted in some cases. CLINICAL DECISIONS SHOULD BE BASED ON THE PRIMARY CLINICAL RECORDS. [facility] [employer] [facility]. provides no warranty or guarantee of the accuracy or completeness of information in this document.
[2023-03-29 08:42] LABS: Hematocrit 41.9 % (37-47); Hemoglobin 13.1 g/dL (12.0-15.0); Mean Corp Hgb Conc 31.3 g/dL (32-36); Mean Corpuscular Hgb 28.4 pg (27.0-32.0); Mean Corpuscular Volume 90.7 fL (81-99); Mean Platelet Vol. 10.7 fl (6.2-12.0); Platelet Count 193 K/mm3 (150-450); RBC Distribution Width CV 13.3 % (11.6-14.6); RBC Distribution Width SD 44.4 fl (35.1-43.9); Red Blood Count 4.62 M/mm3 (4.2-5.4); White Blood Count 5.3 K/mm3 (4.4-11.0)
[2023-03-29 09:10] LABS: ALB/GLOB Ratio 1.1 RATIO (0.9-2.4); AST(SGOT) 15 U/L (15-37); Alanine Aminotransfer ALT/SGPT 22 U/L (13-56); Albumin, Serum 3.6 g/dL (3.2-5.0); Alkaline Phosphatase 74 U/L (45-117); Anion Gap 6 (5-15); BUN 23 mg/dL (7-18); BUN/Creat Ratio 26.9 RATIO (10-20); Calcium,Total 9.3 mg/dL (8.5-10.1); Chloride 108 mmol/L (98-107); Cholesterol 180 mg/dL (200); Creatinine, Serum 0.85 mg/dL (0.55-1.02); EST Glomerular Filtration Rate 70 mL/min (>60); Est Glom Filt Rate - Afr Amer 84 mL/min (>60); Globulin 3.2 g/dL (2.2-4.2); Glucose 97 mg/dL (74-106); High Density Lipoprotein 69 mg/dL; Potassium 4.2 mmol/L (3.5-5.1); Protein, Total 6.8 g/dL (6.4-8.2); Sodium Level 143 mmol/L (136-145); Triglycerides 52 mg/dL; Very Low Density Lipoprotein 10 mg/dL (5-40)
[2023-03-29 10:21] LABS: Microalbumin:Creatinine Ratio 8.2 mg/g CRE (<30 mg/g CRE)
== END | disposition home or self-care (01) ==
LOC: LAB 07:42
PROVIDERS: PCP Nurse Practitioner Family; Referring Provider Nurse Practitioner Family; Visit Provider Nurse Practitioner Family
DX: I10 Essential (primary) hypertension (principal); E78.5 Hyperlipidemia, unspecified; G25.81 Restless legs syndrome
CPT/HCPCS: 36415; 80053; 80061; 82043; 82570; 85027

== ENCOUNTER → 2023-09-28 | Outpatient (CLI) | payer MEDICARE, SELFPAY ==
[2023-09-28 08:24] LABS: Hematocrit 39.1 % (37-47); Hemoglobin 13.2 g/dL (12.0-15.0); Mean Corp Hgb Conc 33.8 g/dL (32-36); Mean Corpuscular Hgb 30.1 pg (27.0-32.0); Mean Corpuscular Volume 89.1 fL (81-99); Mean Platelet Vol. 10.9 fl (6.2-12.0); Platelet Count 234 K/mm3 (150-450); RBC Distribution Width CV 12.8 % (11.6-14.6); RBC Distribution Width SD 42.1 fl (35.1-43.9); Red Blood Count 4.39 M/mm3 (4.2-5.4); White Blood Count 6.2 K/mm3 (4.4-11.0)
[2023-09-28 08:54] LABS: ALB/GLOB Ratio 0.9 RATIO (0.9-2.4); AST(SGOT) 21 U/L (15-37); Alanine Aminotransfer ALT/SGPT 17 U/L (13-56); Albumin, Serum 3.4 g/dL (3.2-5.0); Alkaline Phosphatase 81 U/L (45-117); Anion Gap 8 (5-15); BUN 19 mg/dL (7-18); BUN/Creat Ratio 24.6 RATIO (10-20); Calcium,Total 9.2 mg/dL (8.5-10.1); Chloride 109 mmol/L (98-107); Cholesterol 159 mg/dL (200); Creatinine, Serum 0.77 mg/dL (0.55-1.02); EST Glomerular Filtration Rate 78 mL/min (>60); Est Glom Filt Rate - Afr Amer 95 mL/min (>60); Globulin 3.6 g/dL (2.2-4.2); Glucose 103 mg/dL (74-106); High Density Lipoprotein 55 mg/dL; Potassium 3.8 mmol/L (3.5-5.1); Sodium Level 141 mmol/L (136-145); Triglycerides 61 mg/dL; Very Low Density Lipoprotein 12 mg/dL (5-40)
[2023-09-28 09:07] LABS: Microalbumin,Random Urine 19.9 mg/L (NO RANGE EST.); Microalbumin:Creatinine Ratio 8.1 mg/g CRE (<30 mg/g CRE)
== END | disposition home or self-care (01) ==
LOC: LAB 07:35
PROVIDERS: PCP Nurse Practitioner Family; Referring Provider Nurse Practitioner Family; Visit Provider Nurse Practitioner Family
DX: I10 Essential (primary) hypertension (principal); E78.5 Hyperlipidemia, unspecified; G25.81 Restless legs syndrome
CPT/HCPCS: 36415; 80053; 80061; 82043; 82570; 85027

== ENCOUNTER → 2024-03-27 | Outpatient (CLI) | payer MEDICARE, SELFPAY ==
[2024-03-27 08:03] LABS: Microalbumin,Random Urine 11.1 mg/L (NO RANGE EST.); Microalbumin:Creatinine Ratio 7.4 mg/g CRE (<30 mg/g CRE)
[2024-03-27 08:22] LABS: AST(SGOT) 19 U/L (15-37); Alanine Aminotransfer ALT/SGPT 28 U/L (13-56); Albumin, Serum 3.4 g/dL (3.2-5.0); Alkaline Phosphatase 70 U/L (45-117); Anion Gap 7 (5-15); BUN 24 mg/dL (7-18); BUN/Creat Ratio 29.2 RATIO (10-20); Calcium,Total 8.7 mg/dL (8.5-10.1); Chloride 108 mmol/L (98-107); Cholesterol 191 mg/dL (200); Creatinine, Serum 0.82 mg/dL (0.55-1.02); EST Glomerular Filtration Rate 73 mL/min (>60); Est Glom Filt Rate - Afr Amer 88 mL/min (>60); Globulin 3.4 g/dL (2.2-4.2); Glucose 110 mg/dL (74-106); High Density Lipoprotein 77 mg/dL; Protein, Total 6.8 g/dL (6.4-8.2); Sodium Level 143 mmol/L (136-145); Triglycerides 41 mg/dL; Very Low Density Lipoprotein 8 mg/dL (5-40)
[2024-03-27 08:24] LABS: Vitamin D,25 Hydroxy 52.5 ng/mL
== END | disposition home or self-care (01) ==
LOC: LAB 07:20
PROVIDERS: PCP Nurse Practitioner Family; Referring Provider Nurse Practitioner Family; Visit Provider Nurse Practitioner Family
DX: I10 Essential (primary) hypertension (principal); E78.5 Hyperlipidemia, unspecified; E55.9 Vitamin D deficiency, unspecified
CPT/HCPCS: 36415; 80053; 80061; 82043; 82306; 82570

== ENCOUNTER → 2024-09-24 | Outpatient (CLI) | payer MEDICARE, SELFPAY ==
[2024-09-24 08:45] LABS: Hematocrit 38.5 % (37-47); Hemoglobin 12.3 g/dL (12.0-15.0); Mean Corp Hgb Conc 31.9 g/dL (32-36); Mean Corpuscular Volume 90.6 fL (81-99); Mean Platelet Vol. 10.9 fl (6.2-12.0); Platelet Count 180 K/mm3 (150-450); RBC Distribution Width CV 13.4 % (11.6-14.6); RBC Distribution Width SD 44.4 fl (35.1-43.9); Red Blood Count 4.25 M/mm3 (4.2-5.4); White Blood Count 6.2 K/mm3 (4.4-11.0)
[2024-09-24 09:24] LABS: Creatinine, Urine (random) 195.00 mg/dL (28.00-217.00); Microalbumin,Random Urine < 12.0 mg/L (NO RANGE EST.)
[2024-09-24 09:46] LABS: AST(SGOT) 23 U/L (<=31); Alanine Aminotransfer ALT/SGPT 19 U/L (<=34); Albumin, Serum 3.9 g/dL (3.4-4.8); Alkaline Phosphatase 67 U/L (35-104); Anion Gap 10 (5-15); BUN 18 mg/dL (4-19); BUN/Creat Ratio 21.6 RATIO (10-20); Calcium,Total 9.0 mg/dL (7.6-11.0); Carbon Dioxide 23.7 mmol/L (21.0-32.0); Chloride 107 mmol/L (98-108); Cholesterol 176 mg/dL (<=200); Globulin 2.6 g/dL (2.2-4.2); Glucose 96 mg/dL (70-99); Low Density Lipoprotein Calc. 105 mg/dL; Potassium 4.1 mmol/L (3.3-5.1); Triglycerides 57 mg/dL; Very Low Density Lipoprotein 11 mg/dL (5-40); Vitamin D,25 Hydroxy 55.8 ng/mL (30-100); cholesterol:hdl ratio screen 2.93
== END | disposition home or self-care (01) ==
LOC: LAB 07:00
PROVIDERS: PCP Nurse Practitioner Family; Referring Provider Nurse Practitioner Family; Visit Provider Nurse Practitioner Family
DX: I10 Essential (primary) hypertension (principal); E55.9 Vitamin D deficiency, unspecified; E78.5 Hyperlipidemia, unspecified; G25.81 Restless legs syndrome; R63.8 Other symptoms and signs concerning food and fluid intake
CPT/HCPCS: 36415; 80053; 80061; 82043; 82306; 82570; 85027